=== PATIENT | male | born 1995 ===

== ENCOUNTER 2018-07-07 12:08 | Emergency (ER) | payer OTHER ==
[2018-07-07 12:22] VITALS: BP 160/100
--- NOTE | 2018-07-07 12:36 | UC ---
Cardiac HPI - HPI Summary HPI Summary: This pt is a 23 y/o male presenting to [facility] c/o chest pressure since yesterday. Pt reports chest pressure yesterday lasted the whole day. He states his chest pressure is not similar to his usual panic attacks. Pt notes yesterday he was very busy with school and was not able to go to the ED. Today his chest pressure persists but it is mild in comparison to yesterday. Pt reports his chest pressure is located in the retrosternal area. Denies SOB, diaphoresis, nausea, vomiting. PMHx: HTN, dyslipidemia, long QT syndrome. Pt notes his sister at age 26 from long QT syndrome. - History of Current Complaint Chief Complaint: UCChestPain Stated Complaint: CHEST COMPLAINT Time Seen by Provider: 07/07/18 12:25 Hx Obtained From: Patient Onset/Duration: Lasting Days - 1, Still Present Timing: Constant Initial Severity: Severe Current Severity: Mild Pain Intensity: 1 Chest Pain Location: Mid Sternal - retrosternal Character: Pressure/Squeezing - Pressure Aggravating Factor(s): Nothing Alleviating Factor(s): Nothing Associated Signs & Symptoms: Positive: Chest Pain. Negative: SOB, Fever, Diaphoresis, Nausea/Vomiting - Allergy/Home Medications Allergies/Adverse Reactions: Allergies Allergy/AdvReac Type Severity Reaction Status Date / Time No Known Allergies Allergy Verified 07/07/18 12:21 Home Medications: Home Medications LORazepam [Ativan 0.5 MG TAB] 0.5 mg PO 07/07/18 [History] Metoprolol Succinate 100 mg PO 07/07/18 [History] cloNIDine HCl [Clonidine HCl ER 0.1 MG] 0.1 mg PO 07/07/18 [History] PMH/Surg Hx/FS Hx/Imm Hx - Additional Past Medical History Additional PMH: PMHx: long QT syndrome Cardiovascular History: Hypertension Other Cardiovascular History: Long QT syndrome, dyslipidemia Psychological History: Anxiety - Surgical History Surgical History: Yes Surgery Procedure, Year, and Place: pyloric stenosis repair, t&a, ADD - Family History Known Family History: Positive: Cardiac Disease - sister at age 26 of long QT syndrome - Social History Occupation: Student Alcohol Use: Occasionally Substance Use Type: None Smoking Status (MU): Never Smoked Tobacco Review of Systems Constitutional: Negative Skin: Negative Eyes: Negative ENT: Negative Respiratory: Negative Cardiovascular: Chest Pain Gastrointestinal: Negative Genitourinary: Negative Motor: Negative Neurovascular: Negative Musculoskeletal: Negative Neurological: Negative Psychological: Negative Is Patient Immunocompromised?: No All Other Systems Reviewed And Are Negative: Yes Physical Exam - Summary Physical Exam Summary: VITAL SIGNS: Reviewed. GENERAL: Patient is a well-developed and nourished male who is lying comfortable in the stretcher. Patient is not in any acute respiratory distress. HEAD AND FACE: Normocephalic EYES: PERRLA, EOMI x 2. EARS: Hearing grossly intact. MOUTH: Oropharynx within normal limits. NECK: Supple, trachea is midline, no adenopathy, no JVD, no carotid bruit. CHEST: Symmetric, no tenderness at palpation LUNGS: Clear to auscultation bilaterally. No wheezing or crackles. CVS: Regular rate and rhythm, S1 and S2 present, no murmurs or gallops appreciated. ABDOMEN: Soft, non-tender. Bowel sounds are normal. No abdominal abnormal pulsations. EXTREMITIES: Full ROM in all major joints, no edema, no cyanosis or clubbing. NEURO: Alert and oriented x 3. No acute neurological deficits. Speech is normal and follows commands. SKIN: Dry and warm Triage Information Reviewed: Yes Vital Signs: Initial Vital Signs Temp 97.7 F 07/07/18 12:16 Pulse 85 07/07/18 12:16 Resp 18 07/07/18 12:16 BP 160/100 07/07/18 12:16 Pulse Ox 98 07/07/18 12:16 Vital Signs Reviewed: Yes Diagnostics - EKG EKG Comments: At 12:23 Cardiac Rate: NL - at 79 bpm Cardiac Rhythm: Sinus: Normal - NSR at [address] elevations. PA 141. QT 393. - Assessment/Plan Course Of Treatment: Pt is a 23 y/o male presenting to [facility] c/o chest pressure since yesterday. Pt reports chest pressure yesterday lasted the whole day. He states his chest pressure is not similar to his usual panic attacks. Pt notes yesterday he was very busy with school and was not able to go to the ED. Today his chest pressure persists but it is mild in comparison to yesterday. Pt reports his chest pressure is located in the retrosternal area. Denies SOB, diaphoresis, nausea, vomiting. EKG is a sinus rhythm without ST elevations. The patient reports that he has history of hypertension, dyslipidemia, QT syndrome, and his sister at 26 years old from heart disease. She also had history of long QT syndrome. Therefore I discussed with the patient the need to go to the emergency room for further workup and management. The patient understands and agrees. He declined ambulance transportation. Patient's friend will drive him to the ED. Patient is hemodynamically stable alert oriented 3. The patient was found to have increased blood pressure in UC. The patient will follow up with PCP for better control of BP. - Clinical Impression Provider Diagnoses: chest pain Discharge - Sign-Out/Discharge Documenting (check all that apply): Patient Departure - Discharge with recommendation to go to the ED All imaging exams completed and their final reports reviewed: No Studies - Discharge Plan Condition: Improved Disposition: HOME-RECOMMEND TO ED Patient Education Materials: Chest Pain (ED) Referrals: [facility] [Outside] Additional Instructions: Patient was discharged to the emergency department. The patient declined ambulance transfer. - Billing Disposition and Condition Condition: IMPROVED Disposition: Home-Recommend to ED - Attestation Statements Document Initiated by Scribe: Yes Documenting Scribe: Addie Ricks Provider For Whom Elsy is Documenting (Include Credential): Arron Hrao MD Scribe Attestation: IAddie, scribed for Arron Haro MD on 07/07/18 at 1421. Scribe Documentation Reviewed: Yes Provider Attestation: The documentation as recorded by the Addie guy accurately reflects the service I personally performed and the decisions made by me, Arron Haro MD
== END 2018-07-07 12:54 | disposition home health service (06) ==
LOC: UCEAST 12:08
DX: R07.89 Other chest pain (principal); I10 Essential (primary) hypertension; I45.81 Long QT syndrome; Z82.49 Family history of ischemic heart disease and other diseases of the circulatory system
CPT/HCPCS: 93005; 99202; G0463